=== PATIENT | female | born 1980 | race Caucasian/White ===

== ENCOUNTER 2022-01-02 07:05 | Emergency (ER) | payer OTHER, SELFPAY ==
--- NOTE | ~2022-01-02 | XR_ITS ---
EXAMINATION: XR elbow RT min 3V DATE: 01/02/2022 08:16 INDICATION: Severe right elbow pain TECHNIQUE: Anteroposterior, two oblique and lateral views of the right elbow were obtained. COMPARISON: None. FINDINGS: Alignment is normal. No fracture or joint effusion. Mild nonuniform joint space narrowing and tiny ma rginal osteophytes at the ulnotrochlear articulation. Soft tissue swelling posterior to the olecranon . IMPRESSION: 1. No right elbow joint effusion or acute osseous abnormality. Reviewed, dictated and finalized at location A.
[2022-01-02 07:08] VITALS: BP 110/68; PULSE 86; RESP 18; TEMP 36.2; O2SAT 100
--- NOTE | 2022-01-02 08:05 | ED.UPPEXIN ---
HPI - Extremity Injury (Upper) General Chief Complaint: Extremity Injury, Upper Stated Complaint: Right elbow pain Time Seen by Provider: 01/02/22 07:15 Source: RN notes reviewed History of Present Illness HPI narrative: Patient presents emergency department from home for right elbow pain. Patient states that yesterday in the bathroom stall she bumped her right elbow against the toilet paper graham she states she has had pain in the right elbow since that time there is pain with any movement of the right elbow as well as swelling and some erythema over the posterior elbow. Patient states she then bumped her elbow a second time later that day when she was trying to show someone her elbow. She states that she had had some residual pain since her surgery in August. At that time she had had surgery by Dr. Tomas in [place] for cubital tunnel release and they transposed her nerve over into her forearm and she states after that she had overdone it and it caused her to have some residual pain issues. Patient denies any other trauma or injury and states she is not taking thing for the pain she denies any fevers or chills numbness or tingling extremity Related Data Allergies Allergy/AdvReac Type Severity Reaction Status Date / Time naproxen Allergy Itching Verified 01/02/22 08:25 Review of Systems Review of Systems: Gen.: Denies fevers or chills Musculoskeletal: See HPI Neuro: Denies numbness, tingling, weakness Skin: Denies rash Endo: Denies DM PMFSH Past Medical History Medical History (Updated 01/02/22 @ 10:16 by Enrike Dickson DO) Patient denies significant medical history Surgical History Surgical History (Updated 01/02/22 @ 08:06 by Enrike Dickson DO) S/P cubital tunnel release Social History Social History (Updated 01/02/22 @ 08:06 by Enrike Dickson DO) Smoking status: Never smoker Exam Narrative: APPEARANCE: No acute distress, nontoxic, resting in bed Eyes: EOMI HEENT: Normocephalic, atraumatic, RESPIRATORY: No respiratory distress MUSCULOSKELETAl: Tender palpation over the right dorsal elbow with swelling and mild erythema erythema present, pain worsened with full extension of the elbow but is able to fully extend no tenderness of the right wrist or shoulder radial pulse 2+ neurovascular intact there is no open wounds or drainage NEURO: Awake and alert. Following commands, speech normal, no focal deficits SKIN:: Warm, dry. Normal Color no rash or lesions Course Course Emergency Course: Discussed with patient results of workup and diagnosis. Discussed need for follow-up with primary care, proper use of medication, and reasons to return to the emergency department. Patient understands and agrees to current treatment plan Vital Signs Vital signs: Vital Signs Temperature 97.1 F L 01/02/22 07:08 Pulse Rate 86 01/02/22 07:08 Respiratory Rate 18 01/02/22 07:08 Blood Pressure 110/68 01/02/22 07:08 Pulse Oximetry 100 01/02/22 07:08 Temperature 97.9 F 01/02/22 08:28 Pulse Rate 86 01/02/22 07:08 Respiratory Rate 18 01/02/22 07:08 Blood Pressure 110/68 01/02/22 07:08 Pulse Oximetry 100 01/02/22 07:08 MDM - Extremity Injury (Upper) MDM Narrative Medical decision making narrative: Patient?s injury is consistent with muscular skeletal etiology. No signs of neurologic or vascular compromise to exam. Compartments are soft without signs of compartment syndrome. Pain is consistent with exam and injury. Feel this is likely a olecranon bursitis there is no joint effusion symptoms only began yesterday after bumping the elbow in the region of the olecranon patient does have some chronic pain issues from surgery previously and will have follow-up with her orthopedic physician Imaging Data Radiologist's impression: ITS Impressions Elbow X-Ray 01/02/22 08:32 IMPRESSION: 1. No right elbow joint effusion or acute osseous abnormality. Discharge Plan Discharge
[2022-01-02] MEDS: HYDROcodone/acetaminophen (*CRX) 5-325 MG TABLET 1 TAB PO (08:26)
[2022-01-02 08:28] VITALS: TEMP 36.6
[2022-01-02 10:46] VITALS: BP 140/95; PULSE 85; RESP 18; O2SAT 100
== END 2022-01-02 10:47 | disposition home or self-care (01) ==
PROVIDERS: Emergency Provider Emergency Medicine
DX: M70.21 Olecranon bursitis, right elbow (principal); W22.09XA Striking against other stationary object, initial encounter
CPT/HCPCS: 73080; 99283; A4565; A9270